=== PATIENT | female | born 1965 | race Caucasian/White ===

== ENCOUNTER → 2024-09-22 13:04 | Outpatient (REF) | payer BC, SELFPAY | LOC: HWWDC 13:04 | PROVIDERS: ATTENDING PHYSICIAN Nurse Practitioner Family | DX: E03.9 Hypothyroidism, unspecified (principal); M79.10 Myalgia, unspecified site; G47.9 Sleep disorder, unspecified; I10 Essential (primary) hypertension; E66.01 Morbid (severe) obesity due to excess calories; E55.9 Vitamin D deficiency, unspecified; Z12.31 Encounter for screening mammogram for malignant neoplasm of breast; R53.83 Other fatigue; K21.00 Gastro-esophageal reflux disease with esophagitis, without bleeding; Z87.891 Personal history of nicotine dependence | CPT/HCPCS: 77063; 77067; 93005 ==

== ENCOUNTER → 2024-09-23 09:24 | Outpatient (REF) | payer BC, SELFPAY ==
[2024-09-23 12:27] LABS: % Basophils 0.7 % (0-2); % Eosinophils 1.6 % (0-6); % Immature Granulocytes 0.4 % (0-0.5); % Lymphocytes 28.2 % (20.5-51.1); % Monocytes 8.2 % (1.7-9.3); % Neutrophils 60.9 % (42.2-75.2); Absolute Eosinophils 0.1 10^3/uL (0-0.7); Absolute Lymphocytes 1.3 10^3/uL (1.2-3.4); Absolute Monocytes 0.4 10^3/uL (0.1-0.6); Absolute Neutrophils 2.8 10^3/uL (1.4-6.5); Hematocrit 38.6 % (37.0-47.0); Hemoglobin 13.8 g/dL (12.0-16.0); Mean Corp Hgb Conc. 35.8 g/dL (33.0-37.0); Mean Corpuscular Hgb 28.5 pg (27.0-31.0); Mean Corpuscular Volume 79.8 fL (81.0-99.0); Mean Platelet Volume 10.3 fL (7.4-10.4); Nucleated Red Blood Cells % 0 %; Platelet Count 169 10^3/uL (130-400); Red Blood Cell Count 4.84 10^6/uL (4.20-5.40); Red Cell Dist. Width 12.8 % (11.5-14.5); White Blood Cell Count 4.5 10^3/uL (4.8-10.8)
[2024-09-23 13:07] LABS: ALT (SGPT) 37 U/L (0-35); AST (SGOT) 22 U/L (14-36); Albumin 4.4 g/dl (3.5-5.0); Alkaline Phosphatase 78 U/L (38-126); Blood Urea Nitrogen 15 mg/dl (7-17); Calcium 9.7 mg/dl (8.4-10.2); Carbon Dioxide 30 mmol/L (22-30); Chloride 101 mmol/L (98-107); Glucose 119 mg/dl (70-99); HDL Cholesterol 44 mg/dl; LDL Cholesterol, Calculated 162 mg/dl; Potassium 4.5 mmol/L (3.5-5.1); Sodium 140 mmol/L (135-145); Total Bilirubin 0.5 mg/dl (0.2-1.3); Total Cholesterol 249 mg/dl (50-199); Total Protein 7.2 g/dl (6.3-8.2); Triglyceride 217 mg/dl (10-149); Very Low Density Lipoprotein 43 mg/dl (0-30); eGFR > 60.00
[2024-09-23 13:12] LABS: Urine Albumin Negative (Neg - Trace); Urine Bilirubin Negative (Negative); Urine Character Clear (Clear); Urine Color Yellow; Urine Glucose Negative (Negative); Urine Ketone Negative (Negative); Urine Leukocyte Negative (Negative); Urine Nitrite Negative (Negative); Urine Occult Blood Negative (Negative); Urine Specific Gravity 1.015 (<1.030); Urine Urobilinogen Negative (Neg - 1+)
[2024-09-23 13:20] LABS: Free T4 1.04 ng/dl (0.78-2.19); Vitamin D, 25-OH*** 25.5 ng/mL (30-80)
[2024-09-23 13:33] LABS: TSH 3.83 uIU/ml (0.47-4.68)
== END ==
LOC: HWLAB 09:24
PROVIDERS: ATTENDING PHYSICIAN Nurse Practitioner Family
DX: Z00.00 Encounter for general adult medical examination without abnormal findings (principal); Z01.89 Encounter for other specified special examinations; Z87.891 Personal history of nicotine dependence; E03.9 Hypothyroidism, unspecified; M79.10 Myalgia, unspecified site; G47.9 Sleep disorder, unspecified; I10 Essential (primary) hypertension; E66.01 Morbid (severe) obesity due to excess calories; E55.9 Vitamin D deficiency, unspecified
CPT/HCPCS: 36415; 80053; 80061; 81003; 82306; 84439; 84443; 85025

== ENCOUNTER → 2024-10-11 11:21 | Outpatient (REF) | payer SELFPAY | LOC: RAD 11:21 | PROVIDERS: ATTENDING PHYSICIAN Emergency Medicine | DX: S69.92XA Unspecified injury of left wrist, hand and finger(s), initial encounter (principal) | CPT/HCPCS: 73140 ==

== ENCOUNTER 2025-03-03 08:06 | Emergency (ER) | payer BC, SELFPAY ==
[2025-03-03] VITALS (9 sets, daily range): BP systolic 121–183; BP diastolic 60–95; PULSE 64–84; BMI 41.3
--- NOTE | 2025-03-03 08:47 | ED.GENMED ---
History of Present Illness
General
Chief Complaint: Dizziness
Source: patient
Exam Limitations: none
Time Seen by Provider: 03/03/25 08:33
Nursing documentation reviewed up to this point in time: agreed with
History of Present Illness
History of Present Illness:
59-year-old female with past medical history of obesity, hypertension, GERD, hypothyroidism who presents to the emergency department for evaluation of dizziness. Patient reports onset of symptoms this morning�she says she woke up around 3 AM to go
to the bathroom and had some mild dizziness that she attributed to getting up too quickly. She went back to sleep and then woke up again at around 5:30 AM and continued to have dizziness. She went back to sleep for an hour and when she woke up
around 6:30 AM dizziness again continued and so she decided to come to the emergency room to be evaluated. She describes an 'off balance' sensation along with some lightheadedness. Worse with head movement. She denies room spinning sensation.
She reports mild associated headache as well as some mild nausea. No vomiting. She denies any neck pain. She denies any recent illness�no fever, chills, cough. She denies any chest pain or palpitations, shortness of breath. She denies any focal
weakness, numbness, tingling, speech issues. No loss of vision. She denies any other complaints. She says she does have a history of vertigo in the past and 'a lot of ear issues.' Specifically she says she has had perforated TMs bilaterally in
the past and has had multiple issues since. She denies any earache today.
Past History
Past History
ED Past Medical History: Asthma, Hypothyroidism and Other (chronic anemia, fibroids.)
ED Past Surgical History: Gynecological (Hysterectomy) and Other (Right parotidectopy); Negative Cardiac
Social History
Tobacco: Former smoker (Quit 2009)
Alcohol: Occasional
Drug: None
Personal:
Living: with family
Employment: Employed
Family History
Family History: Cancer; Negative Diabetes, Hypertension, Early CAD or Asthma
Review of Systems
Review of Systems
All Other Systems: ROS reviewed and negative except as documented in HPI and ROS
Constitutional: Denies fever or chills
EENT: Denies sore throat
Respiratory: Denies cough or trouble breathing
Cardiac: Denies chest pain or palpitations
ABD/GI: Reports nausea; Denies abdominal pain or vomiting
: Denies flank pain
Musculoskeletal: Denies neck pain or back pain
Neurological: Reports dizzy and headache; Denies weakness or numbness
Phy Exam
Physical Exam
Physical Exam:
General: Awake, alert, oriented x3; no acute distress
Head: Normocephalic, atraumatic
Eyes: Conjunctiva normal, EOMI, pupils equal round and reactive to light bilaterally; positive Snow-Hallpike towards the right
Ears: TMs intact bilaterally with good light reflex, no effusion or bulging, no erythema and canals generally clear aside from some small amount of cerumen in the right canal
Throat: Airway intact, handling secretions
Neck: Trachea midline, supple without meningismus
Lungs: Clear to auscultation bilaterally, no wheezing, rales, rhonchi
Heart: Regular rate and rhythm, no murmurs, gallops, or rubs
Abd: Soft, non distended, nontender
Neuro: Cranial nerves intact 2 through 12, speech fluid no dysarthria or aphasia, no limb ataxia, motor and sensory intact in all extremities
Extremities: No edema in extremities, warm and well-perfused
Scores
Heart Failure Risk
Heart Failure Risk Score: Not Applicable
Heart Score for Chest Pain Patients
STEMI patient?: Not applicable
Withdrawal Assessment of Alcohol
Withdrawal Assessment Completed?: Not applicable
Course
Orders/Labs/Results
Orders:
Orders
03/03/25 08:19
EKG [Electrocardiogram (*1)] Urgent
Reason for Study: Vertigo / Dizzy
EKG- Treatment ONCE
03/03/25 08:32
Vital Signs- Treatment ONCE
Frequency: Once
Comment: RR
03/03/25 08:47
CT Head W/o Iv Contrast Urgent
Comment:
Reason For Exam: headache, dizziness
0.9% Sodium Chloride 1000 ml [Nss] 1,000 ml IV BOLUS
Meclizine [Antivert] 25 mg PO NOW STA
03/03/25 08:59
Ondansetron Injectable [Zofran] 4 mg IV NOW STA
03/03/25 09:00
Complete Blood Count/With Diff Urgent
Comprehensive Metabolic Panel Urgent
Lipase Urgent
TSH Reflex To Free T4 Urgent
Troponin I Urgent
03/03/25 10:08
diazePAM [Valium Injection] 5 mg IV NOW STA
03/03/25 10:16
Pt Eval And Treat Urgent
Treatment: vertigo
Activity Level: With Assistance
Abnormal Lab Results
03/03/25
09:00
WBC 4.4 L 10^3/uL
(4.8-10.8)
Glucose 140 H mg/dl
(70-99)
ALT 37 H U/L
(0-35)
03/03/25 09:00
03/03/25 09:00
Vital Signs
Initial and Last Documented VS:
Initial Vital Signs
Temp Pulse BP Pulse Ox
36.8 C 69 182/83 98
03/03/25 08:15 03/03/25 08:15 03/03/25 08:15 03/03/25 08:15
Last Documented Vital Signs
Temp Pulse Resp BP Pulse Ox
36.8 C 73 19 158/61 95
03/03/25 08:15 03/03/25 10:45 03/03/25 10:45 03/03/25 10:09 03/03/25 10:45
MDM/Problems Addressed
Differential Diagnosis Includes:
Differential diagnosis for dizziness is wide includes but not limited to: Vertigo, stroke, brain bleed, anemia, dehydration, electrolyte derangement, dysrhythmia, valvular disease, etc
MDM/Problems Addressed:
59-year-old female presents with dizziness that started this morning and has been constant, worse with head movement. She describes off balance and lightheaded feeling. Associated nausea and headache. She has had vertigo in the past and many
inner ear issues she says. Chart review shows similar presentation to this emergency room in 2018. Vitals and exam as above. Plan to place an IV check labs including a CBC and a CMP. Will check EKG. Check troponin in an abundance of caution
with nausea and dizziness although would be atypical presentation for anginal symptoms. Will check thyroid studies given her history of hypothyroidism. Send for a CT head. Will provide some fluids. Can trial some meclizine. Will reassess after
the above.
CBC unremarkable, CMP no clinically significant abnormalities. Troponin undetectable. Thyroid studies normal. CT head shows right mastoid effusion but no acute intracranial abnormalities. Patient getting medications now, continue to monitor.
Suspect likely that this is peripheral vertigo.
Patient with slight improvement but still feeling significant dizziness after initial round of medications. Previously improved after Valium we will trial this and reassess.
Patient feeling much better after Valium. Able to ambulate without difficulty. Stable for discharge. Will follow-up with ENT as an outpatient. Spoke about return precautions all questions answered.
Acute Exacerbation and/or Progression of Chronic Illness:
Acutely hypertensive
Acute Exacerbation and/or Progression of Chronic Illness: HTN
*Radiology
Radiology exam reviewed: radiology read reviewed
*Pulse Oximetry
Patient hypoxic: no
*EKG
Interpreted by ED Provider?: Yes
Comparison EKG: no changes
Heart Rate: 64
Rate: normal
Rhythm: sinus
Tichnor: normal axis
Interval: normal interval
QRS Pattern: right bundle branch block (Incomplete)
Ischemia: no ischemia
*Critical Care Note
Total Time (30-74mins, 75-104mins- exclusive of procedures): Not Applicable
Data Reviewed
Review of Other/Old Records Reveals: Labs and Records
Source: patient and records
ED Attending Note
-
Portions of this chart may have been created with voice recognition software.� Occasional wrong word or��sound alike� substitutions may have occurred due to the inherent limitations of voice recognition software.
Discharge Plan
Departure
Patient Disposition: Home (Routine Discharge)
Date of Disposition: 03/03/25
Time of Disposition: 11:56
Patient with high blood pressure during this ER visit?: Yes
Discharge Problem:
Vertigo
Instructions: Vertigo (a Type of Dizziness) (DC)
Prescriptions:
New
meclizine 25 mg tablet
25 mg PO BID PRN (Reason: dizziness) Qty: 20 0RF
No Action
levothyroxine 100 MCG tablet
125 mcg PO DAILY
acetaminophen 325 MG tablet
650 mg PO Q4HPRN PRN (Reason: mild pain)
hydrocortisone acetate [Proctocort] 30 MG suppository
30 mg [place] TID Qty: 12 0RF
lidocaine HCl 1 APPLIC jelly
1 applic topical BID Qty: 15 0RF
nitroglycerin [Nitro-Bid] 1 INCH/GRAM ointment
1 inch topical NOW Qty: 10 0RF
Rx Instructions:
apply to anal canal twice daily
hydrocodone-acetaminophen 1 TABLET tablet
1 tab PO Q6HPRN PRN (Reason: pain ) Qty: 12 0RF
Referrals:
Iam Tripp MD [Active] - Call in 1-3 days for appt (ENT)
Rito Mullins DO [Family Provider] - Follow up in 5-7 days
Activity Restrictions/Additional Instructions:
Thank you for visiting the Emergency Department at [facility].
1. Please schedule a follow up appointment as directed. Call first thing tomorrow morning to make an appointment.
2. If indicated, please take your medications as instructed and indicated on discharge paperwork.
3. If any of your symptoms do not improve, or persist, or become more severe within 6-12 hours, please return to the emergency department for further care.
4. Please return to the emergency department if you develop a headache, neck pain/stiffness, fever greater than 100.4F, chest pain, shortness of breath, persistent nausea, vomiting, slurred speech, difficulty walking, numbness/tingling, weakness,
signs of infection or any other symptoms that are worrisome to you.
Please call [phone] if you have any questions.
Interventions
Interventions:
*Risk Screen - Suicide Last Done: 03/03/25 08:15
*General Assessment Last Done: 03/03/25 08:15
*Neglect/Abuse Screening Last Done: 03/03/25 08:15
*ED COVID-19 Vaccine History Last Done: 03/03/25 08:15
ED- Neurological Assessment Last Done: 03/03/25 09:44
ED- Cardiac Assessment Last Done: 03/03/25 09:45
ED Swallowing Screen Last Done: 03/03/25 09:45
Discharge Date and Time
Print Language: PASHTO
[2025-03-03 09:13] LABS: % Basophils 0.5 % (0-2); % Eosinophils 1.6 % (0-6); % Immature Granulocytes 0.2 % (0-0.5); % Lymphocytes 28.4 % (20.5-51.1); % Neutrophils 61.3 % (42.2-75.2); Absolute Eosinophils 0.1 10^3/uL (0-0.7); Absolute Lymphocytes 1.2 10^3/uL (1.2-3.4); Absolute Monocytes 0.4 10^3/uL (0.1-0.6); Absolute Neutrophils 2.7 10^3/uL (1.4-6.5); Hematocrit 40.5 % (37.0-47.0); Hemoglobin 14.4 g/dL (12.0-16.0); Mean Corp Hgb Conc. 35.6 g/dL (33.0-37.0); Mean Corpuscular Volume 81.5 fL (81.0-99.0); Mean Platelet Volume 9.5 fL (7.4-10.4); Nucleated Red Blood Cells % 0 %; Platelet Count 169 10^3/uL (130-400); Red Blood Cell Count 4.97 10^6/uL (4.20-5.40); White Blood Cell Count 4.4 10^3/uL (4.8-10.8)
[2025-03-03] MEDS: ZOFRAN 4 MG IV (09:17)
[2025-03-03] MEDS: NSS 1000 IV (09:17)
[2025-03-03] MEDS: ANTIVERT 25 MG PO (09:17)
[2025-03-03 09:26] LABS: ALT (SGPT) 37 U/L (0-35); AST (SGOT) 22 U/L (14-36); Albumin 4.6 g/dl (3.5-5.0); Alkaline Phosphatase 89 U/L (38-126); Blood Urea Nitrogen 17 mg/dl (7-17); Calcium 9.9 mg/dl (8.4-10.2); Carbon Dioxide 28 mmol/L (22-30); Chloride 103 mmol/L (98-107); Estimated Creatinine Clearance 111 ml/min; Glucose 140 mg/dl (70-99); Potassium 4.4 mmol/L (3.5-5.1); Sodium 139 mmol/L (135-145); Total Bilirubin 0.8 mg/dl (0.2-1.3); Total Protein 7.4 g/dl (6.3-8.2); eGFR > 60.00
[2025-03-03 09:57] LABS: TSH Reflex To Free T4 1.88 uIU/ml (0.47-4.68); Troponin I < 0.012 ng/ml
[2025-03-03 10:14] LABS: Lipase 110 U/L (23-300)
[2025-03-03] MEDS: VALIUM INJECTION 5 MG IV (10:31)
== END 2025-03-03 14:08 | disposition home or self-care (01) ==
LOC: EMR 08:06
PROVIDERS: EMERGENCY PHYSICIAN Emergency Medicine; FAMILY PHYSICIAN Internal Medicine
DX: R42 Dizziness and giddiness (principal); J45.909 Unspecified asthma, uncomplicated; E03.9 Hypothyroidism, unspecified; I10 Essential (primary) hypertension; Z87.891 Personal history of nicotine dependence; Z90.710 Acquired absence of both cervix and uterus
CPT/HCPCS: 96374; 96375; 96361; 99284; 70450; 80053; 83690; 84443; 84484; 85025; 93005